=== PATIENT | male | born 1995 | race Caucasian/White ===

== ENCOUNTER 2018-04-25 08:30 | Emergency (ER) | payer SELFPAY ==
[~2018-04-25] VITALS: Ht 185.4 cm; Wt 77.1 kg
[~2018-04-25 08:30] MED LIST: HYDACE5 PO
[2018-04-25] MEDS ORDERED: ALBU90OI INH (10:37)
[2018-04-25] MEDS ORDERED: Prednisone20 MG PO (10:37)
== END 2018-04-25 11:04 | disposition home or self-care (01) ==
LOC: ER 08:30
DX: R06.2 Wheezing (principal); F17.200 Nicotine dependence, unspecified, uncomplicated; F17.210 Nicotine dependence, cigarettes, uncomplicated; Z79.52 Long term (current) use of systemic steroids
CPT/HCPCS: 94644; 94664; 99283; J1100